=== PATIENT | male | born 2005 | race Two or more races ===

== ENCOUNTER 2025-05-28 10:15 | Emergency (ER) | payer BC ==
[~2025-05-28] VITALS: Ht 191.8 cm; Wt 117.9 kg
[2025-05-28] MEDS ORDERED: AMOX-CLAV 875-1 EACH PO (11:20)
[2025-05-28] MEDS ORDERED: 24HOUR ALLERGY10 MG PO (11:22)
[2025-05-28] MEDS ORDERED: MUCINEX600 MG PO (11:22)
== END 2025-05-28 11:29 | disposition home or self-care (01) ==
LOC: ER 10:15 → EMR PED 10:57 → ER 10:57 → EMR PED 11:29
DX: J98.8 Other specified respiratory disorders (principal)